=== PATIENT | female | born 1960 | race African-American/Black ===

== ENCOUNTER 2017-02-03 16:05 | Observation (INO) | payer MEDICARE ==
[~2017-02-03] VITALS: Ht 165.1 cm; Wt 163.3 kg
[2017-02-03 01:50] VITALS: BP 141/84
[2017-02-03] MEDS ORDERED: SODIUM CHLORIDE 0.9% 500 ML IV ONE (18:00)
[2017-02-03] MEDS ORDERED: ONDANSETRON HCL 4MG/2ML VIAL IV ONE (18:00)
[2017-02-03 18:17] LABS: HEMATOCRIT. 39.5 % (36.0-48.0); HEMOGLOBIN. 13.2 g/dL (12.0-16.0); MEAN CORPUSCULAR HEMOGLOBIN 29.9 pg (28.0-32.0); MEAN CORPUSCULAR VOLUME 89.8 fL (81.0-99.0); MEAN PLATELET VOLUME 9.4 fl (7.4-10.4); PLATELET 204 x1000/uL (130-400); RED CELL DISTRIBUTION WIDTH 13.9 % (11.6-14.6)
[2017-02-03 18:23] LABS: HCG SCREEN NEGATIVE
[2017-02-03 18:26] LABS: CARBON DIOXIDE 32 mEq/L (21-32); CHLORIDE 107 mEq/L (98-107)
[2017-02-03 18:47] LABS: PLATELET ESTIMATE NORMAL
[2017-02-03 20:22] LABS: CLARITY URINE CLEAR (CLEAR); COLOR URINE YELLOW (YELLOW); GLUCOSE URINE TRACE (NEGATIVE); KETONES URINE NEGATIVE (NEGATIVE); LEUKOCYTE ESTERASE URINE NEGATIVE (NEGATIVE); NITRITE URINE NEGATIVE (NEGATIVE); OCCULT BLOOD URINE NEGATIVE (NEGATIVE); PH URINE 8.5 (4.5-8.0); PROTEIN URINE NEGATIVE (NEGATIVE); SPECIFIC GRAVITY URINE 1.009 (1.005-1.030); UROBILINOGEN URINE 0.2 E.U./dL (0.2-1.0)
[2017-02-03] MEDS ORDERED: HYDROCODONE/ACETAMINOPHEN 10/325MG TABLET PO ONE (20:30)
[2017-02-04] VITALS (7 sets, daily range): BP systolic 101–141; BP diastolic 70–86
[2017-02-04] MEDS ORDERED: IPRATROPIUM/ALBUTEROL 0.5-3(2.5)MG/3ML NEB HHN PRN (03:30)
[2017-02-04] MEDS ORDERED: ACETAMINOPHEN 650MG/20.3ML UDC PO PRN (03:30)
[2017-02-04] MEDS ORDERED: ONDANSETRON HCL 4MG/2ML VIAL IV PRN (03:30)
[2017-02-04] MEDS ORDERED: METF10002 PO (03:56)
[2017-02-04] MEDS ORDERED: LIRA0.6P2 SUBCUT (03:56)
[2017-02-04] MEDS ORDERED: LOSA50TA20 PO (03:56)
[2017-02-04] MEDS ORDERED: NOVOLOG SQ (03:56)
[2017-02-04] MEDS ORDERED: OMEP20TA80 PO (03:56)
[2017-02-04] MEDS ORDERED: ATOR10TA69 PO (03:56)
[2017-02-04] MEDS ORDERED: CHOL20004 PO (03:56)
[2017-02-04] MEDS ORDERED: SITA50TA3 PO (03:56)
[2017-02-04] MEDS ORDERED: ASPI-1159 PO (03:56)
[2017-02-04] MEDS ORDERED: PREG150C PO (03:56)
[2017-02-04] MEDS ORDERED: NIFE30TA94 PO (03:56)
[2017-02-04] MEDS ORDERED: LISI10TA5 PO (03:56)
[2017-02-04] MEDS ORDERED: DEXTROSE 50% WATER 50ML SYRINGE IV PRN (06:45)
[2017-02-04] MEDS: BLOOD SUGAR DIAGNOSTIC STRIP TEST SCH ×4 (07:18→21:00)
[2017-02-04] MEDS: INSULIN LISPRO 100 UNITS/ML SUBCUT SCH ×4 (07:40→21:00)
[2017-02-04] MEDS: PANTOPRAZOLE SODIUM 40 MG/VIAL IV SCH (08:11)
[2017-02-04] MEDS: DEXT 5%/0.45% NACL 1000ML 1,000 ML IV SCH ×2 (08:11→13:38)
[2017-02-04] MEDS ORDERED: POTASSIUM CHLORIDE 20MEQ TABLET SR PO SCH (09:00)
[2017-02-04] MEDS ORDERED: FUROSEMIDE 40MG/4ML VIAL IVP SCH (09:00)
[2017-02-04] MEDS: LOSARTAN POTASSIUM 50 MG TABLET PO SCH (13:38)
[2017-02-04] MEDS: NIFEDIPINE XL 30MG TAB PO SCH (13:38)
[2017-02-04] MEDS: ATORVASTATIN CALCIUM 20MG TABLET PO SCH (21:00)
[2017-02-05] VITALS (9 sets, daily range): BP systolic 84–122; BP diastolic 45–70
[2017-02-05] MEDS: DEXT 5%/0.45% NACL 1000ML 1,000 ML IV SCH ×2 (04:05→14:15)
[2017-02-05] MEDS: BLOOD SUGAR DIAGNOSTIC STRIP TEST SCH ×4 (06:47→21:52)
[2017-02-05] MEDS: INSULIN LISPRO 100 UNITS/ML SUBCUT SCH ×4 (06:47→21:52)
[2017-02-05 07:54] LABS: HDL CHOLESTEROL 62 mg/dL (40-59); LDL CHOLESTEROL 104 mg/dL (5-100); TROPONIN I < 0.02 ng/mL (0.00-0.04)
[2017-02-05] MEDS: PANTOPRAZOLE SODIUM 40 MG/VIAL IV SCH (09:21)
[2017-02-05] MEDS: NIFEDIPINE XL 30MG TAB PO SCH (09:22)
[2017-02-05] MEDS: LOSARTAN POTASSIUM 50 MG TABLET PO SCH (09:22)
[2017-02-05 11:28] LABS: *AMPHETAMINES SCREEN URINE NEGATIVE (NEGATIVE); *BARBITURATES SCREEN URINE NEGATIVE (NEGATIVE); *BENZODIAZEPINES SCREEN URINE NEGATIVE (NEGATIVE); *COCAINE SCREEN URINE NEGATIVE (NEGATIVE); CANNABINOID URINE SCREEN PRESUMTIVE POSITIVE (NEGATIVE); METHADONE URINE SCREEN NEGATIVE (NEGATIVE); OPIATES URINE SCREEN NEGATIVE (NEGATIVE); PHENCYCLIDINE URINE SCREEN NEGATIVE (NEGATIVE)
[2017-02-05] MEDS: ATORVASTATIN CALCIUM 20MG TABLET PO SCH (21:46)
[2017-02-06] VITALS: BP 114/78
[2017-02-06 04:00] VITALS: BP_SYST 128; BP_SYST 129; BP_DIAS 68; BP_DIAS 86
[2017-02-06] MEDS: BLOOD SUGAR DIAGNOSTIC STRIP TEST SCH ×2 (06:15→12:50)
[2017-02-06] MEDS: INSULIN LISPRO 100 UNITS/ML SUBCUT SCH ×2 (06:30→13:26)
[2017-02-06] MEDS: LOSARTAN POTASSIUM 50 MG TABLET PO SCH (08:44)
[2017-02-06] MEDS ORDERED: FAMOTIDINE 20MG TABLET PO SCH (09:00)
[2017-02-06 14:43] VITALS: BP 130/77
== END 2017-02-06 16:00 | disposition home or self-care (01) ==
LOC: ER 17:36 → INTOOBSV 20:25 → 8WST 20:25
PROVIDERS: ADMIT Internal Medicine; ATTEND Internal Medicine
DX: R55 Syncope and collapse (principal); E11.65 Type 2 diabetes mellitus with hyperglycemia; E11.40 Type 2 diabetes mellitus with diabetic neuropathy, unspecified; E78.00 Pure hypercholesterolemia, unspecified; I50.9 Heart failure, unspecified; I11.0 Hypertensive heart disease with heart failure; E78.5 Hyperlipidemia, unspecified; Z82.49 Family history of ischemic heart disease and other diseases of the circulatory system; Z86.73 Personal history of transient ischemic attack (TIA), and cerebral infarction without residual deficits
CPT/HCPCS: 36415; 70450; 70551; 71010; 72070; 72100; 72125; 73502; 74176; 80053; 80061; 80305; 81001; 82962; 83036; 83690; 84484; 84703; 85025; 93005; 93880; 96361; 96372; 96374; 96375; 96376; 97116; 97162; 97530; 99285; C9113; G0378; J1815; J1940; J2405; J3490; J7030; J7040